=== PATIENT | female | born 1985 | race Caucasian/White ===

== ENCOUNTER 2017-07-23 11:53 | Emergency (ER) ==
[2017-07-23 12:01] VITALS: BP 112/77; TEMP 96.9; BMI 17.9
--- NOTE | 2017-07-23 12:29 | ED.PDOC ---
General ED Provider: Dr. SARA MORAN Chief Complaint: Abdominal Pain Stated Complaint: Sudden onset LLQ pain approx 2 hrs ago, lasted for approx 45 minutes. Sharp,stabbing pain, similar to ruptured ovarian cyst pain she's had in past. Currently her lower bad is mildly sore, L>R. No nausea,vomiting, or diarrhea. No fever or chills. Time Seen by Physician: 12:30 Mode of Arrival: Walk-In Information Source: Patient Exam Limitations: No limitations Nursing and Triage Documentation Reviewed and Agree: Yes GI Complaint Exam - Abdominal Pain Complaint/Exam Onset: Sudden Duration: 2 hrs ago Symptoms Are: Resolved (mild soreness of lower abdomen now, L>R) Timing: Constant Initial Severity: Severe Current Severity: Mild Location of Pain: LLQ Character: Reports: Sharp (initial pain), Aching (currently) Aggravating: Reports: Movement Alleviating: Reports: Spontaneous resolution ADMINISTRATIVE LIAISON History: Reports: Ovarian cyst : 1 Para: 1 Hx Total # of Abortions (Spontaneous & Elective): 0 AAA Risk Factors: Reports: Smoking Cardiac Risk Factors: Reports: Smoking Ovarian Torsion Risk Factors: Reports: Ovarian cysts Surgical Obstruction Risk Factors: Reports: None Related Surgical History: Reports: None (left oophrectomy, including left tube ( done for huge ovarian cyst ("9 pounds")) Patient Rh Status: Unknown Abdominal Findings: Present: None (mild lower abd tenderness, L>R) Differential Diagnoses: Appendicitis, Diverticulitis, Ureteral Stone, UTI, Ectopic , Ovarian Cyst, PID Review of Systems - Review Of Systems Constitutional: Reports: No symptoms Eyes: Reports: No symptoms Ears, Nose, Mouth, Throat: Reports: No symptoms Respiratory: Reports: No symptoms Cardiac: Reports: No symptoms GI: Reports: Abdominal pain (LLQ, acutely, mild lower abdoment currently) : Reports: No symptoms Musculoskeletal: Reports: No symptoms Skin: Reports: No symptoms Neurological: Reports: No symptoms All Other Systems: Reviewed and Negative Past Medical History - Past Medical History Previously Healthy: Yes Endocrine: Reports: None Cardiovascular: Reports: None Respiratory: Reports: None Hematological: Reports: None Gastrointestinal: Reports: None Genitourinary: Reports: None, Other (ovarian cysts) Neuro/Psych: Reports: None Musculoskeletal: Reports: None Cancer: Reports: None Last Menstrual Period: now - Surgical History General Surgical History: Reports: , Other (left oophorectomy) - Family History Family History: Reports: None - Social History Smoking Status: Current every day smoker, Heavy tobacco smoker Hx Substance Use: No Alcohol Screening: None Lives: With family - Immunizations Tetanus Shot up to Date: No Influenza Vaccine within 12 Months: No Pneumococcal Vaccine up to Date: No Physical Exam - Physical Exam Appearance: Well-appearing, No pain distress, Well-nourished Ill-appearing: None Pain Distress: None Respiratory: Airway patent, Breath sounds clear, Breath sounds equal, Respirations nonlabored Cardiovascular: RRR, Pulses normal, No rub, No murmur GI/: Soft, No masses, Bowel sounds normal, No Organomegaly, Tender (mild lower abd tenderness) Musculoskeletal: Normal strength, ROM intact, No edema, No calf tenderness Skin: Warm, Dry, Normal color Neurological: Sensation intact, Motor intact, Reflexes intact, Cranial nerves intact, Alert, Oriented Psychiatric: Affect appropriate, Mood appropriate Critical Care Note - Critical Care Note Total Time (mins): 0 Course - Course Hematology/Chemistry: 07/23/17 12:40 07/23/17 12:40 Orders, Labs, Meds: Lab Review 07/23/17 07/23/17 07/23/17 12:40 12:40 13:00 WBC 8.75 RBC 4.30 Hgb 13.4 Hct 38.3 MCV 89.1 MCH 31.2 H MCHC 35.0 RDW Coeff of [place]ank[place] 13.0 Plt Count 194 Immature Gran % (Auto) 0.5 Neut % (Auto) 78.9 Lymph % (Auto) 13.1 Turner % (Auto) 5.6 Eos % (Auto) 1.3 Baso % (Auto) 0.6 Immature Gran # (Auto) 0.0 Neut # 6.9 Lymph # 1.2 Turner # 0.5 Eos # 0.1 Baso # 0.1 Sodium 140 Potassium 4.1 Chloride 107 Carbon Dioxide 25 Anion Gap 12.1 BUN 9 Creatinine 0.72 Estimated GFR (MDRD) 94.00 BUN/Creatinine Ratio 12.50 Glucose 88 Calcium 9.4 Total Bilirubin 0.53 AST 17 ALT 15 Alkaline Phosphatase 65 Total Protein 7.4 Albumin 4.3 Globulin 3.1 Albumin/Globulin Ratio 1.39 Amylase 52 Lipase 25 Urine Color Red Urine Clarity Turbid Urine pH 5.5 Ur Specific [place] 1.025 Urine Protein 3+ Urine Glucose (UA) Negative Urine Ketones 1+ Urine Blood 3+ Urine Nitrite Positive Urine Bilirubin 2+ Urine Urobilinogen 2.0 Ur Leukocyte Esterase 3+ Urine Microscopic RBC Tntc Urine Microscopic WBC 5-10 Ur Squamous Epith Cells 5-10 Urine Bacteria 1+ Urine Test 07/23/17 13:00 WBC RBC Hgb Hct MCV MCH MCHC RDW Coeff of [place] Plt Count Immature Gran % (Auto) Neut % (Auto) Lymph % (Auto) Turner % (Auto) Eos % (Auto) Baso % (Auto) Immature Gran # (Auto) Neut # Lymph # Turner # Eos # Baso # Sodium Potassium Chloride Carbon Dioxide Anion Gap BUN Creatinine Estimated GFR (MDRD) BUN/Creatinine Ratio Glucose Calcium Total Bilirubin AST ALT Alkaline Phosphatase Total Protein Albumin Globulin Albumin/Globulin Ratio Amylase Lipase Urine Color Urine Clarity Urine pH Ur Specific [place] Urine Protein Urine Glucose (UA) Urine Ketones Urine Blood Urine Nitrite Urine Bilirubin Urine Urobilinogen Ur Leukocyte Esterase Urine Microscopic RBC Urine Microscopic WBC Ur Squamous Epith Cells Urine Bacteria Urine Test Negative Orders Category Date Time Status AMYLASE Stat LAB 07/23/17 12:40 Completed CBC W/ AUTO DIFF Stat LAB 07/23/17 12:40 Completed COMPREHENSIVE METABOLIC PANEL Stat LAB 07/23/17 12:40 Completed LIPASE Stat LAB 07/23/17 12:40 Completed TEST URINE [URINE ] Stat LAB 07/23/17 13:00 Completed URINALYSIS C & S IF INDICATED Stat LAB 07/23/17 13:00 Completed URINE CULTURE Stat LAB 07/23/17 13:00 Received Vital Signs: Temp Pulse Resp BP Pulse Ox 07/23/17 11:54 96.9 F L 83 20 112/77 99 Departure - Departure Time of Disposition: 13:41 Disposition: HOME SELF-CARE Discharge Problem: UTI (urinary tract infection) Qualifiers: Urinary tract infection type: acute cystitis Hematuria presence: without hematuria Qualified Code(s): N30.00 - Acute cystitis without hematuria Instructions: Urinary Tract Infection in Women (ED) Condition: Good Pt referred to PMD for follow-up: No (see doctor if no better in 3 days) Allergies/Adverse Reactions: Allergies erythromycin base Adverse Reaction (Verified 07/23/17 12:01) latex Adverse Reaction (Verified 07/23/17 12:01) Penicillins Adverse Reaction (Verified 07/23/17 12:01) Home Medications: Ambulatory Orders Sulfamethoxazole/Trimethoprim [Bactrim Ds 800/160 mg] 1 tab PO BID #14 tablet Disposition Discussed With: Patient
[2017-07-23 12:52] LABS: BASOPHILS # (AUTO) 0.1 K/uL (0-0.2); BASOPHILS % (AUTO) 0.6 % (0.0-3.0); EOSINOPHILS # (AUTO) 0.1 K/ul (0.0-0.7); EOSINOPHILS % (AUTO) 1.3 % (0.0-7.0); HEMATOCRIT 38.3 % (37.0-47.0); HEMOGLOBIN 13.4 g/dl (12.0-16.0); IMMATURE GRANULOCYTE % (AUTO) 0.5 % (0.0-5.0); LYMPHOCYTES # (AUTO) 1.2 K/uL (0.60-3.4); LYMPHOCYTES % (AUTO) 13.1 (10.0-50.0); MEAN CORPUSCULAR HEMOGLOBIN 31.2 pg (27.0-31.0); MEAN CORPUSCULAR VOLUME 89.1 fl (81.0-99.0); MONOCYTES # (AUTO) 0.5 K/uL (0.4-2.0); MONOCYTES % (AUTO) 5.6 (0-10); NEUTROPHILS # (AUTO) 6.9 K/ul (2.0-6.9); NEUTROPHILS % (AUTO) 78.9; PLATELET COUNT 194 10^3/uL (140-440); WHITE BLOOD COUNT 8.75 K/ul (4.6-10.2)
[2017-07-23 13:11] LABS: ALBUMIN 4.3 g/dL (3.4-5.0); ALBUMIN/GLOBULIN RATIO 1.39; ANION GAP 12.1; BILIRUBIN,TOTAL 0.53 mg/dL (0.00-1.20); BUN/CREATININE RATIO 12.5; CALCIUM 9.4 mg/dL (8.2-10.2); CREATININE 0.72 mg/dL (0.60-1.30); POTASSIUM 4.1 mmol/L (3.5-5.10); TOTAL PROTEIN 7.4 g/dL (6.4-8.2)
[2017-07-23 13:19] LABS: BILIRUBIN,URINE 2+ (NEGATIVE); KETONES,URINE 1+ (NEGATIVE); LEUKOCYTE ESTERASE ,URINE 3+ (NEGATIVE); NITRITE,URINE Positive (NEGATIVE); PH,URINE 5.5 (5-9); PROTEIN,URINE 3+ (NEGATIVE); URINE, BLOOD 3+ (NEGATIVE)
[2017-07-23 13:20] LABS: URINE PREGNANCY INTERNAL QC INTERNAL QC VALID
[2017-07-23 13:23] LABS: ADD URINE MICROSCOPIC YES
[2017-07-23 13:32] LABS: BACTERIA,URINE 1+ (NOT PRESENT)
== END 2017-07-23 13:48 | disposition home or self-care (01) ==
LOC: ED 11:53
DX: N30.00 Acute cystitis without hematuria (principal); F17.210 Nicotine dependence, cigarettes, uncomplicated
CPT/HCPCS: 36415; 80053; 81001; 81025; 82150; 83690; 85025; 87086; 99283

== ENCOUNTER 2017-10-06 09:13 | Outpatient (CLI) ==
--- NOTE | 2017-10-06 11:24 | CT ---
EXAM: CT abdomen pelvis with and without contrast HISTORY: Generalized abdominal pain, lower abdominal pain, nausea, diarrhea COMPARISON: None TECHNIQUE: CT abdomen pelvis performed with and without intravenous contrast. Coronal and sagittal reformatted images obtained. FINDINGS: Lung bases clear. No free air. No acute abnormalities of the bones. Heart normal in size . The liver appears normal. Gallbladder appears normal. Pancreas appears normal. Spleen appears no rmal. Adrenals appear normal. Kidneys appear normal. Aorta normal in caliber. Uterus appears norm al. There is an involuting right ovarian cyst or follicle measuring 2 cm. Aorta normal in caliber. Prominent pelvic veins are present. Stomach appears normal. No dilated loops small bowel. Append ix appears normal. There is moderate fecal retention in the right and proximal transverse colon. No inflammatory stranding identified in the abdomen or pelvis. IMPRESSION: 1. No acute inflammatory process identified in the abdomen or pelvis. 2. 2.0 cm involuting right ovarian cyst or follicle. 3. Prominent pelvic veins present, a finding that can be seen in pelvic congestion syndrome. 4. Mild to moderate fecal retention in the right and transverse colon.
== END 2017-10-06 09:14 | disposition home or self-care (01) ==
LOC: RAD 09:13
PROVIDERS: ATTEND Nurse Practitioner Family
DX: R10.84 Generalized abdominal pain (principal)
CPT/HCPCS: 36415; 80053; 81001; 82150; 83690; 85025

== ENCOUNTER 2018-07-20 18:17 | Emergency (ER) | payer OTHER ==
[2018-07-20 18:24] VITALS: BP 111/67; TEMP 98.7; BMI 18.3
[2018-07-20] MEDS ORDERED: PROTONIX IV IVP STA (19:39)
[2018-07-20] MEDS ORDERED: CLEOCIN PO STA (19:39)
[2018-07-20] MEDS ORDERED: SODIUM CHLORIDE 1,000 ML IV STA (19:39)
[2018-07-20] MEDS ORDERED: ZOFRAN 4 MG/2 ML IVP STA (19:39)
[2018-07-20] MEDS ORDERED: TORADOL IVP STA (19:39)
--- NOTE | 2018-07-20 19:43 | ED.PDOC ---
General ED Provider: Dr. CINDY PARKS Chief Complaint: Abdominal Pain Stated Complaint: Patient states that she has had right upper quadrant and back pain for two days. Pain is worse today. Denies any trauma. has been coughing some with yellow sputum production. Also complains of left ear ache and Toothache. Does not have a primary care doctor. Time Seen by Physician: 19:30 Mode of Arrival: Walk-In Information Source: Patient, Family Exam Limitations: No limitations Seen Within Last 72 Hours for Same Complaint By: ED Nursing and Triage Documentation Reviewed and Agree: Yes Does patient meet sepsis criteria?: No System Inflammatory Response Syndrome: Not Applicable Sepsis Protocol: For patient's 13 years and over: Temp is 96.8 and below OR 101 and greater Pulse >90 BPM Resp >20/minute Acutely Altered Mental Status Are patient's symptoms suggestive of a new infection, such as: -Pneumonia -Skin, Soft Tissue -Endocarditis -UTI -Bone, Joint Infection -Implantable Device -Acute Abdominal Infection -Wound Infection -Meningitis -Blood Stream Catheter Infection -Unknown GI Complaint Exam - Abdominal Pain Complaint/Exam Onset: Gradual Duration: 2 days Symptoms Are: Still present Timing: Constant Initial Severity: Moderate Current Severity: Severe Location of Pain: RUQ Radiates To: Reports: Chest, Back Character: Reports: Sharp, Aching, Throbbing Aggravating: Reports: Movement, Deep breaths Alleviating: Reports: Vomiting Associated Signs and Symptoms: Reports: Cough (yellow sputum ), Nausea, Vomiting AAA Risk Factors: Reports: None Cardiac Risk Factors: Reports: None Ovarian Torsion Risk Factors: Reports: Ovarian cysts Surgical Obstruction Risk Factors: Reports: Prior abdominal surgery Related Surgical History: Reports: Laparoscopy Patient Rh Status: Unknown Abdominal Findings: Present: Other (right upper quadrant tenderness ) Differential Diagnoses: Appendicitis, Bowel Obstruction, Pancreatitis, GB, UTI, , Ectopic , Ovarian Cyst Review of Systems - Review Of Systems Constitutional: Reports: Loss of appetite Eyes: Reports: No symptoms Ears, Nose, Mouth, Throat: Reports: Ear pain (left ), Mouth pain (Left lower molar ) GI: Reports: Abdominal pain, Nausea, Poor appetite, Poor fluid intake, Vomiting : Reports: No symptoms Musculoskeletal: Reports: No symptoms Skin: Reports: No symptoms Neurological: Reports: Anxiety Hematologic/Lymphatic: Reports: No symptoms All Other Systems: Reviewed and Negative Past Medical History - Past Medical History Previously Healthy: Yes Endocrine: Reports: None Cardiovascular: Reports: None Respiratory: Reports: None Hematological: Reports: None Gastrointestinal: Reports: None Genitourinary: Reports: Other (ovarian cysts) Neuro/Psych: Reports: Anxiety Musculoskeletal: Reports: None Cancer: Reports: None Last Menstrual Period: 2 weeks ago - Surgical History General Surgical History: Reports: , Other (left oophorectomy) - Family History Family History: Reports: None - Social History Smoking Status: Current every day smoker, Heavy tobacco smoker Hx Substance Use: No Alcohol Screening: None - Immunizations Influenza Vaccine within 12 Months: No Pneumococcal Vaccine up to Date: No Physical Exam - Physical Exam Appearance: Ill-appearing, Thin Ill-appearing: Moderate Pain Distress: Severe Eyes: RESHMA, EOMI, Conjunctiva clear ENT: Ears normal, Nose normal, Oropharynx normal Neck: Supple Respiratory: Airway patent, Breath sounds clear, Breath sounds diminished, Respirations nonlabored Cardiovascular: RRR, Pulses normal, No rub, No murmur GI/: Soft, Tender (Rigth upper quadrant and right lower rib area ) Musculoskeletal: Normal strength, ROM intact, No edema, No calf tenderness Skin: Warm, Dry Neurological: Motor intact, Alert, Oriented Psychiatric: Anxious Interpretation - Radiology Interpretation Radiology Interpretation By: Radiologist Radiology Results: Positive (constipation.) Exam Interpreted: CT Scan Critical Care Note - Critical Care Note Total Time (mins): 0 Course - Course Hematology/Chemistry: 07/20/18 19:54 07/20/18 19:54 Orders, Labs, Meds: Lab Review 07/20/18 07/20/18 07/20/18 19:54 19:54 19:54 WBC 9.95 RBC 3.98 L Hgb 12.0 Hct 35.8 L MCV 89.9 MCH 30.2 MCHC 33.5 RDW Coeff of Sanket 12.9 Plt Count 165 Immature Gran % (Auto) 0.3 Neut % (Auto) 68.7 Lymph % (Auto) 16.0 Butts % (Auto) 14.2 H Eos % (Auto) 0.6 Baso % (Auto) 0.2 Immature Gran # (Auto) 0.0 Neut # (Auto) 6.8 Lymph # (Auto) 1.6 Butts # (Auto) 1.4 Eos # (Auto) 0.1 Baso # (Auto) 0.0 Sodium 139.3 Potassium 3.60 Chloride 103.0 Carbon Dioxide 32.6 H Anion Gap 7.30 BUN 9.5 Creatinine 0.70 Estimated GFR (MDRD) 96.00 BUN/Creatinine Ratio 13.57 Glucose 99.1 Calcium 9.16 Total Bilirubin 0.20 AST 42.8 H ALT 28.1 Alkaline Phosphatase 65.8 Total Protein 7.03 Albumin 3.95 Globulin 3.08 Albumin/Globulin Ratio 1.28 Amylase 51.5 Lipase 69.9 Serum , Qual Negative Urine Color Urine Clarity Urine pH Ur Specific [place] Urine Protein Urine Glucose (UA) Urine Ketones Urine Blood Urine Nitrite Urine Bilirubin Urine Urobilinogen Ur Leukocyte Esterase Urine Microscopic WBC Ur Squamous Epith Cells Urine Bacteria 07/20/18 20:07 WBC RBC Hgb Hct MCV MCH MCHC RDW Coeff of [place] Plt Count Immature Gran % (Auto) Neut % (Auto) Lymph % (Auto) [place] % (Auto) Eos % (Auto) Baso % (Auto) Immature Gran # (Auto) Neut # (Auto) Lymph # (Auto) But[place] # (Auto) Eos # (Auto) Baso # (Auto) Sodium Potassium Chloride Carbon Dioxide Anion Gap BUN Creatinine Estimated GFR (MDRD) BUN/Creatinine Ratio Glucose Calcium Total Bilirubin AST ALT Alkaline Phosphatase Total Protein Albumin Globulin Albumin/Globulin Ratio Amylase Lipase Serum , Qual Urine Color Yellow Urine Clarity Hazy Urine pH 6.5 Ur Specific [place] 1.010 Urine Protein Negative Urine Glucose (UA) Negative Urine Ketones Negative Urine Blood Trace-lysed Urine Nitrite Negative Urine Bilirubin Negative Urine Urobilinogen 0.2 Ur Leukocyte Esterase 1+ Urine Microscopic WBC 5-10 Ur Squamous Epith Cells 5-10 Urine Bacteria Trace Orders Category Date Time Status ED IV/MEDIPORT/POWERPORT .ONCE EMERGENCY 07/20/18 19:39 Active AMYLASE Stat LAB 07/20/18 19:54 Completed CBC W/ AUTO DIFF Stat LAB 07/20/18 19:54 Completed COMPREHENSIVE METABOLIC PANEL Stat LAB 07/20/18 19:54 Completed LIPASE Stat LAB 07/20/18 19:54 Completed SERUM Stat LAB 07/20/18 19:54 Completed URINALYSIS C & S IF INDICATED Stat LAB 07/20/18 20:07 Completed URINE CULTURE Stat LAB 07/20/18 20:24 Completed 0.9 % Sodium Chloride [Saline Flush] MEDS 07/20/18 19:39 Discontinued 1 syr IVF PRN PRN Clindamycin HCl [Cleocin] MEDS 07/20/18 19:39 Discontinued 300 mg PO ONCE STA Ketorolac Tromethamine [Toradol] MEDS 07/20/18 21:03 Discontinued 60 mg IM ONCE STA Ondansetron HCl/Pf [Zofran 4 mg/2 ml] MEDS 07/20/18 21:03 Discontinued 4 mg IM ONCE STA CT ABD/PEL WO RENAL STONE PROT Stat RADS 07/20/18 19:39 Completed Medications Discontinued Medications Generic Name Dose Route Start Last Admin Trade Name Freq PRN Reason Stop Dose Admin Clindamycin HCl 300 mg 07/20/18 19:39 07/20/18 20:27 Cleocin PO 07/20/18 19:40 300 mg ONCE STA Administration Ketorolac Tromethamine 60 mg 07/20/18 21:03 07/20/18 21:16 Toradol IM 07/20/18 21:04 60 mg ONCE STA Administration Ondansetron HCl 4 mg 07/20/18 21:03 07/20/18 21:15 Zofran 4 Mg/2 Ml IM 07/20/18 21:04 4 mg ONCE STA Administration Sodium Chloride 1 syr 07/20/18 19:39 Saline Flush IVF PRN PRN To flush IV Vital Signs: Temp Pulse Resp BP Pulse Ox 07/20/18 18:18 98.7 F 79 20 111/67 98 Departure - Departure Time of Disposition: 21:10 Disposition: HOME SELF-CARE Discharge Problem: Dental caries, Dental abscess Constipation Qualifiers: Constipation type: slow transit constipation Qualified Code(s): K59.01 - Slow transit constipation Instructions: Constipation (ED), Dental Abscess (ED) Condition: Stable Pt referred to PMD for follow-up: Yes IPMP verified?: Yes (no hits ) Additional Instructions: Take medications as prescribed Follow up with PCP or the clinic in 3 days Follow up with Dentist soon push fluids Prescriptions: Clindamycin HCl 300 mg PO TID #30 capsule Ibuprofen [Motrin] 600 mg PO Q6H PRN #30 tablet PRN Reason: Analgesia Polyethylene Glycol 3350 [Miralax] 17 gm PO DAILY #375 powd.pack Allergies/Adverse Reactions: Allergies sulfamethoxazole [From Bactrim] Allergy (Intermediate, Verified 07/20/18 18:25) Hot/Cold/Back and side pain/throat felt like it had lump trimethoprim [From Bactrim] Allergy (Intermediate, Verified 07/20/18 18:25) Hot/Cold/Back and side pain/throat felt like it had lump erythromycin base Adverse Reaction (Verified 07/20/18 18:25) latex Adverse Reaction (Verified 07/20/18 18:25) Penicillins Adverse Reaction (Verified 07/20/18 18:25) Home Medications: Ambulatory Orders Clindamycin HCl 300 mg PO TID #30 capsule 07/20/18 Ibuprofen [Motrin] 600 mg PO Q6H PRN #30 tablet 07/20/18 Polyethylene Glycol 3350 [Miralax] 17 gm PO DAILY #375 powd.pack 07/20/18 Disposition Discussed With: Patient, Family
--- NOTE | 2018-07-20 20:48 | CT ---
EXAM: CT abdomen pelvis without intravenous contrast 07/20/2018. Sagittal and coronal reformatted i mages obtained HISTORY: Right upper quadrant pain COMPARISON: 10/06/2017 FINDINGS: The liver shows no gross abnormality. Examination limited due to the lack of intravenous contrast. Gallbladder, mesentery and pancreas are not well visualized. The adrenal glands, kidneys and spleen show no acute process. No hydronephrosis. Prominent quantity of stool in the colon. Correlate for constipation. There is no evidence of bowel obstruction. The prior study describes pelvic varices. This cannot be evaluated without intravenous contrast. No acute osseous abnormality. IMPRESSION: 1. No urinary or bowel obstruction. 2. Large quantity of stool in the colon. Correlate for constipation. 3. Limited anatomic detail due to the lack of intravenous contrast. The appendix not visualized. 4. 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 This process cannot be evaluated on the cu rrent study.
[2018-07-20] MEDS ORDERED: ZOFRAN 4 MG/2 ML IM STA (21:03)
[2018-07-20] MEDS ORDERED: TORADOL IM STA (21:03)
== END 2018-07-20 22:25 | disposition home or self-care (01) ==
LOC: ED 18:17
DX: K59.01 Slow transit constipation (principal); K04.7 Periapical abscess without sinus; F17.210 Nicotine dependence, cigarettes, uncomplicated
CPT/HCPCS: 36415; 74176; 80053; 81001; 82150; 83690; 84703; 85025; 87086; 87186; 96372; 99283

== ENCOUNTER 2018-08-14 01:48 | Emergency (ER) | payer OTHER ==
[2018-08-14 01:52] VITALS: BP 136/84; TEMP 98.6; BMI 18.8
--- NOTE | 2018-08-14 02:07 | ED.PDOC ---
General ED Provider: Dr. JOANA BULLOCK-ER Chief Complaint: Tooth Problem Stated Complaint: my tooth hurts Time Seen by Physician: 02:04 Mode of Arrival: Walk-In Information Source: Patient, Family Exam Limitations: No limitations Nursing and Triage Documentation Reviewed and Agree: Yes Does patient meet sepsis criteria?: No System Inflammatory Response Syndrome: Not Applicable Sepsis Protocol: For patient's 13 years and over: Temp is 96.8 and below OR 101 and greater Pulse >90 BPM Resp >20/minute Acutely Altered Mental Status Are patient's symptoms suggestive of a new infection, such as: -Pneumonia -Skin, Soft Tissue -Endocarditis -UTI -Bone, Joint Infection -Implantable Device -Acute Abdominal Infection -Wound Infection -Meningitis -Blood Stream Catheter Infection -Unknown EENT Complaint Exam - Dental/Oral Complaint/Exam Mechanism of Injury: No known trauma Onset/Duration: several days Symptoms Are: Still present Initial Severity: Mild Current Severity: Moderate Location: left upper premolar Character: Reports: Dull, Aching, Throbbing Aggravating: Reports: Heat, Cold, Chewing Associated Signs and Symptoms: Reports: Swelling Related History: Reports: Previous tooth problem Tooth Findings: Present: Gross decay, Gross caries Cervical Lymphadenopathy Present: No Facial Swelling Present: No Bleeding Present: No Oropharynx Findings: Absent: Clots, Active bleeding Septal Hematoma: No Foreign Body Present: No Dysphagia Present: No Drooling Present: No Asymmetrical Tonsillar Swelling Present: No Uvula Midline: No Senia-tonsillar Fluctuence: No Trismus Present: No Palatal Petechiae Present: No Scarlatinaform Rash Present: No Differential Diagnoses: Dental Caries Review of Systems - Review Of Systems Constitutional: Reports: No symptoms Eyes: Reports: No symptoms Ears, Nose, Mouth, Throat: Reports: Mouth pain Respiratory: Reports: No symptoms Cardiac: Reports: No symptoms GI: Reports: No symptoms : Reports: No symptoms Musculoskeletal: Reports: No symptoms Skin: Reports: No symptoms Neurological: Reports: No symptoms Endocrine: Reports: No symptoms Hematologic/Lymphatic: Reports: No symptoms All Other Systems: Reviewed and Negative Past Medical History - Past Medical History Previously Healthy: Yes Endocrine: Reports: None Cardiovascular: Reports: None Respiratory: Reports: None Hematological: Reports: None Gastrointestinal: Reports: None Genitourinary: Reports: Other (ovarian cysts) Neuro/Psych: Reports: Anxiety Musculoskeletal: Reports: None Cancer: Reports: None Last Menstrual Period: 2 weeks - Surgical History General Surgical History: Reports: , Other (left oophorectomy) - Family History Family History: Reports: None - Social History Smoking Status: Current every day smoker, Heavy tobacco smoker Hx Substance Use: No Alcohol Screening: Occasionally - Immunizations Tetanus Shot up to Date: Yes Influenza Vaccine within 12 Months: No Pneumococcal Vaccine up to Date: No Physical Exam - Physical Exam Appearance: Well-appearing Pain Distress: Moderate Eyes: RESHMA, EOMI, Conjunctiva clear ENT: Ears normal, Nose normal, Oropharynx normal (noted right upper premolar tender) Neck: Supple Respiratory: Airway patent Cardiovascular: RRR, Pulses normal, No rub, No murmur GI/: Soft, Nontender, No masses, Bowel sounds normal, No Organomegaly Musculoskeletal: Normal strength Skin: Warm Neurological: Sensation intact, Motor intact, Reflexes intact, Cranial nerves intact, Alert, Oriented Psychiatric: Affect appropriate, Mood appropriate Critical Care Note - Critical Care Note Total Time (mins): 0 Course - Course Vital Signs: Temp Pulse Resp BP Pulse Ox 08/14/18 01:48 98.6 F 89 16 136/84 98 Departure - Departure Time of Disposition: 02:06 Disposition: HOME SELF-CARE Discharge Problem: Toothache Instructions: Toothache (ED) Condition: Good Pt referred to PMD for follow-up: Yes IPMP verified?: No Additional Instructions: continue antgx--keep f/u dentist Allergies/Adverse Reactions: Allergies sulfamethoxazole [From Bactrim] Allergy (Intermediate, Verified 08/14/18 01:54) Hot/Cold/Back and side pain/throat felt like it had lump trimethoprim [From Bactrim] Allergy (Intermediate, Verified 08/14/18 01:54) Hot/Cold/Back and side pain/throat felt like it had lump erythromycin base Adverse Reaction (Verified 08/14/18 01:54) latex Adverse Reaction (Verified 08/14/18 01:54) Penicillins Adverse Reaction (Verified 08/14/18 01:54) Sulfa (Sulfonamide Antibiotics) Adverse Reaction (Verified 08/14/18 01:54) Home Medications: Ambulatory Orders Clindamycin HCl 300 mg PO TID #30 capsule 07/20/18 Ibuprofen [Motrin] 600 mg PO Q6H PRN #30 tablet 07/20/18 Hydrocodone Bit/Acetaminophen [[place] 7.5-325] 7.5 mg PO PRN PRN 08/14/18 Disposition Discussed With: Patient, Family
[2018-08-14] MEDS ORDERED: TORADOL IM STA (02:10)
[2018-08-14] MEDS ORDERED: ZOFRAN 4 MG/2 ML IM STA (02:10)
[2018-08-14] MEDS ORDERED: MORPHINE 4 MG/ML SYRINGE IM STA (02:10)
== END 2018-08-14 02:38 | disposition home or self-care (01) ==
LOC: ED 01:48
DX: K08.89 Other specified disorders of teeth and supporting structures (principal); K02.7 Dental root caries; F17.210 Nicotine dependence, cigarettes, uncomplicated
CPT/HCPCS: 96372; 99282

== ENCOUNTER 2018-08-14 18:05 | Emergency (ER) ==
[2018-08-14 18:13] VITALS: BP 148/92; TEMP 98.9; BMI 18.0
--- NOTE | 2018-08-14 18:23 | ED.PDOC ---
General ED Provider: Dr. CINDY PARKS Chief Complaint: Tooth Problem Stated Complaint: dental pain for days she was seen last night for similar complains. was given morphone and Toradol. Is on antibiotics Time Seen by Physician: 18:21 Mode of Arrival: Walk-In Information Source: Patient Seen Within Last 72 Hours for Same Complaint By: ED Nursing and Triage Documentation Reviewed and Agree: Yes Does patient meet sepsis criteria?: No System Inflammatory Response Syndrome: Not Applicable Sepsis Protocol: For patient's 13 years and over: Temp is 96.8 and below OR 101 and greater Pulse >90 BPM Resp >20/minute Acutely Altered Mental Status Are patient's symptoms suggestive of a new infection, such as: -Pneumonia -Skin, Soft Tissue -Endocarditis -UTI -Bone, Joint Infection -Implantable Device -Acute Abdominal Infection -Wound Infection -Meningitis -Blood Stream Catheter Infection -Unknown Review of Systems - Review Of Systems Constitutional: Reports: No symptoms Eyes: Reports: No symptoms Ears, Nose, Mouth, Throat: Reports: Mouth pain Respiratory: Reports: No symptoms Cardiac: Reports: No symptoms GI: Reports: No symptoms : Reports: No symptoms Musculoskeletal: Reports: No symptoms Skin: Reports: No symptoms Neurological: Reports: No symptoms Endocrine: Reports: No symptoms Hematologic/Lymphatic: Reports: No symptoms All Other Systems: Reviewed and Negative Past Medical History - Past Medical History Previously Healthy: Yes Endocrine: Reports: None Cardiovascular: Reports: None Respiratory: Reports: None Hematological: Reports: None Gastrointestinal: Reports: None Genitourinary: Reports: Other (ovarian cysts) Neuro/Psych: Reports: Anxiety Musculoskeletal: Reports: None Cancer: Reports: None Last Menstrual Period: first of august Other Pertinent Past Medical History: Dental caries - Surgical History General Surgical History: Reports: , Other (left oophorectomy) - Family History Family History: Reports: None - Social History Smoking Status: Current every day smoker, Heavy tobacco smoker Hx Substance Use: No Alcohol Screening: Occasionally - Immunizations Influenza Vaccine within 12 Months: No Pneumococcal Vaccine up to Date: No Physical Exam - Physical Exam Appearance: Ill-appearing, Thin Ill-appearing: Mild Pain Distress: Severe Eyes: RESHMA, EOMI, Conjunctiva clear ENT: Ears normal, Nose normal, Oropharynx normal Neck: Supple Respiratory: Airway patent, Breath sounds clear, Breath sounds equal, Respirations nonlabored Cardiovascular: RRR, Pulses normal, No rub, No murmur GI/: Soft, Nontender, No masses, Bowel sounds normal, No Organomegaly Musculoskeletal: Normal strength, ROM intact, No edema, No calf tenderness Skin: Warm, Dry, Normal color Neurological: Sensation intact, Motor intact, Reflexes intact, Cranial nerves intact, Alert, Oriented Psychiatric: Anxious Critical Care Note - Critical Care Note Total Time (mins): 0 Course - Course Vital Signs: Temp Pulse Resp BP Pulse Ox 08/14/18 18:05 98.9 F 50 L 16 148/92 H 93 L Departure - Departure Time of Disposition: 19:00 Disposition: HOME SELF-CARE Discharge Problem: Toothache, Dental abscess Instructions: Dental Abscess (ED), Toothache (ED) Condition: Stable Pt referred to PMD for follow-up: Yes IPMP verified?: No Additional Instructions: Take medications as prescribed Follow up with PCP in 3 days Prescriptions: Oxycodone-Acetaminophe 7.5-325 [Percocet 7.5-325] 1 tab PO Q6H #14 tablet Allergies/Adverse Reactions: Allergies sulfamethoxazole [From Bactrim] Allergy (Intermediate, Verified 08/14/18 18:14) Hot/Cold/Back and side pain/throat felt like it had lump trimethoprim [From Bactrim] Allergy (Intermediate, Verified 08/14/18 18:14) Hot/Cold/Back and side pain/throat felt like it had lump erythromycin base Adverse Reaction (Verified 08/14/18 18:14) latex Adverse Reaction (Verified 08/14/18 18:14) Penicillins Adverse Reaction (Verified 08/14/18 18:14) Sulfa (Sulfonamide Antibiotics) Adverse Reaction (Verified 08/14/18 18:14) Home Medications: Ambulatory Orders Clindamycin HCl 300 mg PO TID #30 capsule 07/20/18 Ibuprofen [Motrin] 600 mg PO Q6H PRN #30 tablet 07/20/18 Acetaminophen [Tylenol] 325 mg PO Q4HR PRN 08/14/18 Oxycodone-Acetaminophe 7.5-325 [Percocet 7.5-325] 1 tab PO Q6H #14 tablet Disposition Discussed With: Patient
[2018-08-14] MEDS ORDERED: PERCOCET 5-325 PO STA (18:33)
[2018-08-14] MEDS ORDERED: OXYCODONE PO STA (18:33)
== END 2018-08-14 19:10 | disposition home or self-care (01) ==
LOC: ED 18:05
DX: K08.89 Other specified disorders of teeth and supporting structures (principal); K04.7 Periapical abscess without sinus; F17.210 Nicotine dependence, cigarettes, uncomplicated; K02.7 Dental root caries
CPT/HCPCS: 96372; 99282